=== PATIENT | male | born 1960 | race Caucasian/White ===

== ENCOUNTER 2020-08-01 15:35 | Emergency (ER) | payer OTHER, SELFPAY ==
[2020-08-01 15:39] VITALS: BP 163/85; PULSE 88; RESP 22; TEMP 37.2; O2SAT 99
[2020-08-01 16:04] LABS: INR 1.1 (0.9-1.3); Prothrombin Time 12.1 SECONDS (10.1-12.7)
[2020-08-01 16:05] LABS: Add Manual Diff / Slide Review NO; Basophils Absolute Auto 100 /uL (0-100); Basophils Percent Auto 0.6 % (0-2); Eosinophils Absolute Auto 400 /uL (0-450); Eosinophils Percent Auto 4.4 % (2-4); Hematocrit 46.8 % (41-53); Hemoglobin 15.8 g/dL (13.5-17.5); Lymphocytes Absolute Auto 3300 /uL (1100-4500); Lymphocytes Percent Auto 35.7 % (25-40); Mean Corpuscular HGB Conc 33.6 % (30-36); Monocytes Absolute Auto 600 /uL (0-900); Monocytes Percent Auto 6.6 % (3-14); Neutrophils Absolute Auto 4900 /uL (1500-7000); Neutrophils Percent Auto 52.7 % (50-75); Platelet Count 268 X10^3/uL (150-400); Red Blood Cell Count 4.93 X10^6/uL (4.5-5.9); Red Cell Distribution Width 13.5 % (11.6-14.8); White Blood Cell Count 9.2 X10^3/uL (4.5-11.0)
[2020-08-01 16:06] LABS: PTT Partial Thromboplastin Tim 38 SECONDS (26.4-36.2)
[2020-08-01 16:08] LABS: Alanine Aminotransferase 36 IU/L (<50); Albumin 5.1 g/dL (3.5-5.0); Albumin Globulin Ratio 1.2 (1.0-2.8); Alkaline Phosphatase 97 U/L (38-126); Aspartate Aminotransferase 40 IU/L (17-59); BUN Creatinine Ratio 15.1 (6-22); Bilirubin Total 0.6 mg/dL (0.2-1.3); Blood Urea Nitrogen 13 mg/dL (9-20); Calcium 10.3 mg/dL (8.4-10.2); Carbon Dioxide 28 mmol/L (22-32); Chloride 104 mmol/L (98-107); Estimated Glomerular Filt Rate > 60.0 mL/min (>60); Globulin 4.3 g/dL (1.7-4.1); Glucose 91 mg/dL (70-100); HEMOLYSIS < 15 (0-50); Lipase 213 U/L (23-300); Potassium 3.8 mmol/L (3.4-5.1); Sodium 141 mmol/L (137-145); Total Protein 9.4 g/dL (6.3-8.2)
--- NOTE | 2020-08-01 18:07 | ED.NAVMDI ---
HPI - Nausea/Vomiting/Diarrhea General Chief complaint: Nausea/Vomiting/Diarrhea Stated complaint: BOTH SIDE WHERE KIDNEY ARE EXTREME PAIN CRAMPS BENAVIDES Time Seen by Provider: 08/01/20 18:02 Source: patient Mode of arrival: Ambulatory Limitations: no limitations History of Present Illness HPI Narrative: 59-year-old male Daily smoker presents with a chief complaint of many days of bilateral flank pain which he refers to his kidney pain. He states that the pain seems to be constant and is worse with motion and improves with rest. He denies any fever or chills. He states he has had nausea and occasional episodes of vomiting. He states that he has had some issues with abnormal bowel movements but is rather nonspecific regarding this. He denies any change in medications or diet. He denies any dysuria, frequency or urgency. He states that he has been losing weight for no apparent reason for the past few months. He denies any history of cancer. He denies any recent travel or exposure to ill persons. MD complaint: nausea and abdominal pain Onset (ago): day(s) Description of Vomiting: food contents Description of Diarrhea: none Associated Abdominal Pain: Yes Location of pain: diffuse Severity: mild Quality: cramping Relieving factors: none Exacerbating factors: none Associated symptoms: other (bilateral flank pain) Related Data Previous Rx's Medication Instructions Recorded benzonatate 100 mg capsule 100 mg PO BID PRN #30 cap 01/10/20 fluticasone propionate 50 2 spray NASAL DAILY #18.2 ml 01/10/20 mcg/actuation nasal spray,suspension amoxicillin-pot clavulanate 1 tab PO BID #20 tab 08/01/20 [Augmentin] hyoscyamine sulfate 0.125 mg PO BID-QID PRN #20 tab 08/01/20 ondansetron 4 mg PO TID-QID PRN #10 tab 08/01/20 Allergies Allergy/AdvReac Type Severity Reaction Status Date / Time DIVALPROEX Allergy Mild liver Uncoded 01/10/20 15:39 shutting down Review of Systems Constitutional Constitutional: Denies chills, Reports fatigue, Denies fever(s), Denies frequent falls, Denies lethargy and Denies weakness Eyes Eyes: Denies change in vision, Denies eye discharge, Denies irritation and Denies loss of vision ENT Ears, Nose, Mouth, and Throat: Denies change in voice, Denies dizziness, Denies neck pain, Denies sore throat and Denies throat swelling Cardiovascular Cardiovascular: Denies chest pain, Denies irregular heart rhythm, Denies lightheadedness, Denies palpitations, Denies dyspnea, Denies dyspnea on exertion and Denies orthopnea Respiratory Respiratory: Denies cough, Denies dyspnea, Denies dyspnea on exertion and Denies wheezing Gastrointestinal Gastrointestinal: Reports abdominal pain, Denies change in bowel habits, Denies diarrhea, Reports nausea and Denies vomiting Musculoskeletal Musculoskeletal: Denies neck pain and Denies numbness Integumentary/Breasts Skin/Breast: Denies pruritus, Denies erythema, Denies rash and Denies wounds Neurologic Neurologic: Denies behavioral changes, Denies confusion, Denies dizziness, Denies frequent falls, Denies loss of vision, Denies numbness and Denies weakness Psychiatric Psychiatric: Denies anxiety, Denies behavioral changes, Denies confusion, Denies depression, Denies homicidal ideation and Denies suicidal ideation Endocrine Endocrine: Reports fatigue, Denies flushing and Denies palpitations Hematologic/Lymphatic Hematologic/Lymphatic: Denies easy bruising Allergic/Immunologic Allergic/Immunologic: Denies urticaria, Denies throat swelling and Denies wheezing Patient History Medical History Allergic rhinitis Social History Smoking Status: Current every day smoker Smoking Status: Current every day smoker alcohol intake frequency: a few times a week Alcohol type: beer Exam Narrative Exam Narrative: GENERAL: [51] year old patient appears older than stated age. Thin, temporal wasting, appears uncomfortable HEAD: Atraumatic. Normocephalic. EYES: Pupils equal round and reactive. Extraocular motions intact. No scleral icterus. No injection or drainage. ENT: Nose without bleeding, purulent drainage. Throat without erythema, tonsillar hypertrophy or exudate. Airway patent. NECK: Trachea midline. Non tender CARDIOVASCULAR: Regular rate and rhythm without murmurs, gallops, or rubs. RESPIRATORY: Clear to auscultation. Breath sounds equal bilaterally. No wheezes, rales, or rhonchi. GASTROINTESTINAL: Abdomen soft, mild generalized tenderness, nondistended. EXTREMITIES: No edema or joint tenderness. BACK: Nontender without deformity or crepitance. No flank tenderness. NEURO: AOx3. SKIN: No rash or erythema of visible areas Initial Vital Signs Initial Vital Signs: Vital Signs Temperature 98.9 F 08/01/20 15:39 Pulse Rate 88 08/01/20 15:39 Respiratory Rate 22 08/01/20 15:39 Blood Pressure 163/85 H 08/01/20 15:39 Pulse Oximetry 99 08/01/20 15:39 Course Orders Ordered: Discontinued Medications Sodium Chloride (Normal Saline 0.9%) 1,000 mls @ 1,000 mls/hr IV BOLUS ONE Stop: 08/01/20 19:56 Last Admin: 08/01/20 19:13 Dose: Not Given Documented by: QUEENIE Pantoprazole Sodium (Pantoprazole 40 Mg Vial) 40 mg IV NOW ONE Stop: 08/01/20 18:58 Last Admin: 08/01/20 19:13 Dose: 40 mg Documented by: QUEENIE Reevaluation(s) Reevaluation #1: Patient feeling significant improvement over the above-stated therapies Vital Signs Vital signs: Vital Signs - 8 hr 08/01/20 15:39 Temperature 98.9 F Pulse Rate 88 Respiratory Rate 22 Blood Pressure 163/85 H Pulse Oximetry 99 MDM - Nausea/Vomiting/Diarrhea Lab Data Result diagrams: 08/01/20 15:50 08/01/20 15:50 Labs: Lab Results 08/01/20 08/01/20 08/01/20 Range/Units 15:50 15:50 15:50 WBC 9.2 (4.5-11.0) X10^3/uL RBC 4.93 (4.5-5.9) X10^6/uL Hgb 15.8 (13.5-17.5) g/dL Hct 46.8 (41-53) % MCV 95.0 (80-100) fL MCH 32.0 (26-34) PG MCHC 33.6 (30-36) % RDW 13.5 (11.6-14.8) % Plt Count 268 (150-400) X10^3/uL Neut % (Auto) 52.7 (50-75) % Lymph % (Auto) 35.7 (25-40) % [place] % (Auto) 6.6 (3-14) % Eos % (Auto) 4.4 H (2-4) % Baso % (Auto) 0.6 (0-2) % Neut # (Auto) 4900 (3045-5110) /uL Lymph # (Auto) 3300 (7719-8882) /uL [place] # (Auto) 600 (0-900) /uL Eos # (Auto) 400 (0-450) /uL Baso # (Auto) 100 (0-100) /uL PT 12.1 (10.1-12.7) SECONDS INR 1.1 (0.9-1.3) APTT 38 H (26.4-36.2) SECONDS Sodium 141 (137-145) mmol/L Potassium 3.8 (3.4-5.1) mmol/L Chloride 104 (98-107) mmol/L Carbon Dioxide 28 (22-32) mmol/L BUN 13 (9-20) mg/dL Creatinine 0.86 (0.66-1.25) mg/dL Estimated GFR > 60.0 (>60) mL/min BUN/Creatinine Ratio 15.1 (6-22) Glucose 91 (70-100) mg/dL Calcium 10.3 H (8.4-10.2) mg/dL Total Bilirubin 0.6 (0.2-1.3) mg/dL AST 40 (17-59) IU/L ALT 36 (<50) IU/L Alkaline Phosphatase 97 (38-126) U/L Total Protein 9.4 H (6.3-8.2) g/dL Albumin 5.1 H (3.5-5.0) g/dL Globulin 4.3 H (1.7-4.1) g/dL Albumin/Globulin Ratio 1.2 (1.0-2.8) Lipase 213 (23-300) U/L Urine Color Urine Appearance Urine pH (4.5-8.0) Ur Specific [place] (1.000-1.035) Urine Protein (Negative) Urine Glucose (UA) (Negative) g/dL Urine Ketones (NEGATIVE) Urine Occult Blood (Negative) Urine Nitrate (Negative) Urine Bilirubin (NEGATIVE) Urine Urobilinogen (0.2) E.U./dL Ur Leukocyte Esterase (NEGATIVE) Urine RBC (0-5/HPF) Urine WBC (0-5/HPF) Ur Squamous Epith Cells (0-5/HPF) Urine Bacteria (None) Ur Culture Indicated? C. difficile Tox (PCR) 08/01/20 08/01/20 Range/Units 18:05 18:05 WBC (4.5-11.0) X10^3/uL RBC (4.5-5.9) X10^6/uL Hgb (13.5-17.5) g/dL Hct (41-53) % MCV (80-100) fL MCH (26-34) PG MCHC (30-36) % RDW (11.6-14.8) % Plt Count (150-400) X10^3/uL Neut % (Auto) (50-75) % Lymph % (Auto) (25-40) % [place] % (Auto) (3-14) % Eos % (Auto) (2-4) % Baso % (Auto) (0-2) % Neut # (Auto) (6643-7830) /uL Lymph # (Auto) (4804-9101) /uL [place] # (Auto) (0-900) /uL Eos # (Auto) (0-450) /uL Baso # (Auto) (0-100) /uL PT (10.1-12.7) SECONDS INR (0.9-1.3) APTT (26.4-36.2) SECONDS Sodium (137-145) mmol/L Potassium (3.4-5.1) mmol/L Chloride (98-107) mmol/L Carbon Dioxide (22-32) mmol/L BUN (9-20) mg/dL Creatinine (0.66-1.25) mg/dL Estimated GFR (>60) mL/min BUN/Creatinine Ratio (6-22) Glucose (70-100) mg/dL Calcium (8.4-10.2) mg/dL Total Bilirubin (0.2-1.3) mg/dL AST (17-59) IU/L ALT (<50) IU/L Alkaline Phosphatase (38-126) U/L Total Protein (6.3-8.2) g/dL Albumin (3.5-5.0) g/dL Globulin (1.7-4.1) g/dL Albumin/Globulin Ratio (1.0-2.8) Lipase (23-300) U/L Urine Color Yellow Urine Appearance Clear Urine pH 5.0 (4.5-8.0) Ur Specific [place] >=1.030 H (1.000-1.035) Urine Protein Trace H (Negative) Urine Glucose (UA) Negative (Negative) g/dL Urine Ketones 2+ H (NEGATIVE) Urine Occult Blood Trace-intact (Negative) Urine Nitrate Negative (Negative) Urine Bilirubin Negative (NEGATIVE) Urine Urobilinogen 0.2 (0.2) E.U./dL Ur Leukocyte Esterase Negative (NEGATIVE) Urine RBC 0-1/hpf (0-5/HPF) Urine WBC 0-1/hpf (0-5/HPF) Ur Squamous Epith Cells 0-1 /hpf (0-5/HPF) Urine Bacteria None seen (None) Ur Culture Indicated? Cult not indicated C. difficile Tox (PCR) Negative for c. diff Imaging Data CT scan - abdomen/pelvis: Radiologist's Impression: Chart Viewer Diagnostics DATE TYPE STATUS REF RANGE/AUTHOR Hx 08/01/20 18:09 TrevinoVikram Saini 59, M0 1960 [facility] ER, Main ED 54.431kg Nausea/Vomiting/Diarrhea Search Chart No Data to Display liver shutting down ONSET 08/01/20 19:00 Vikram Hong 59 M [address] Scan ReportSigned Patient: Vikram Hong SMR#: [id number]: 1960cct:[id number]/Sex: 59 / MDate of Service: 08/01/20Loc: EDAccession Number: [id number] Procedure: CT chest abd pel w con Ordering Provider: Lawrence Perdomo D.O. PROCEDURE: CT CHEST ABD PEL W CON INDICATIONS: persistent N/V, weight loss TECHNIQUE: After the administration of intravenous contrast, 5 mm thick sections acquired from the lung apices to the symphysis. 2.5 mm thick coronal and sagittal reformats were acquired. Additional 7 mm thick coronal maximum intensity projection (MIP) reformats acquired through the lungs. Optional 10-minute delayed imaging may be performed from the kidneys to the bladder. For radiation dose reduction, the following was used: automated exposure control, adjustment of mA and/or kV according to patient size. COMPARISON: None. FINDINGS: Image quality: Excellent. CHEST: Lungs: No focal airspace opacity. Pleural spaces are clear. Mediastinum: No threshold enlarged mediastinal or hilar lymph node. Normal heart size. No pericardial effusion. Normal caliber thoracic aorta and main pulmonary trunk. Chest wall: No threshold enlarged axillary lymph node. No suspicious lytic or blastic osseous lesion. Age-indeterminate height loss of a few vertebral bodies in the thoracic spine. ABDOMEN: Solid organs: No discrete mass lesion or acute finding of the liver, spleen, pancreas, gallbladder, adrenal glands, or kidneys. Peritoneum and bowel: No abnormally dilated loop of bowel. The small bowel is diffusely fluid filled with areas of wall thickening up to 1.2 centimeters and mucosal hyperenhancement. The mesenteric vasculature appears widely patent and well opacified with IV contrast. Nodes and vessels: No retroperitoneal or mesenteric adenopathy. Aorta and inferior vena cava are normal in size and enhancement. Miscellaneous: No ventral hernias. PELVIS: Genitourinary: Bladder wall thickness is normal. Miscellaneous: No inguinal hernias or adenopathy. Bones: Pelvic ring and hip joints appear intact. No vertebral compression fractures. IMPRESSION: Wall thickening and mucosal thickening involving much of the proximal and mid small bowel. Findings are presumably infectious/inflammatory. Dictated by: Jesús Trevino M.D. on 08/01/2020 at 18:48 Approved by: Jesús Trevino M.D. on 08/01/2020 at 18:53 [facility] Narrative Medical decision making narrative: Patient with many months of weight loss, nausea and poor appetite presents with increasing abdominal pain nausea and vomiting. He has a very reassuring physical exam, symptoms are controlled with above-stated therapies. He is able to tolerate orals. CT is very reassuring and demonstrates no obstruction, tumors but does suggest some inflammatory change. Patient initiated on antibiotics given relatively new onset of pain and extensive return precautions. He has had questions answered to his apparent satisfaction Discharge Plan Departure Patient Disposition: Home Clinical Impression: Acute vomiting, Colitis Instructions: DI for Vomiting -- Adult, DI for Colitis Activity Restrictions/Additional Instructions: *You have been diagnosed with [dehydration and vomiting likely due to colitis] *What to do: *Take medications as directed *Follow up with your primary care provider in 2-3 days, call for an appointment. Let them know you were seen in the Emergency Department and that we ask that you be seen in follow up. I have also given you contact information for our general surgeon and a local access services assistant as you will likely need their assistance in getting to the bottom of all this, possibly with a colonoscopy *Return to ER if you should have any new, worsening or concerning symptoms, such as [fever greater than 101 F, dizziness, weakness, lightheadedness, increasing pain or inability to tolerate eating and drinking] Prescriptions: New hyoscyamine sulfate 0.125 mg tablet 0.125 mg PO BID-QID PRN (Reason: dyspepsia) Qty: 20 RF: 0 ondansetron 4 mg tablet,disintegrating 4 mg PO TID-QID PRN (Reason: nausea and vomiting) Qty: 10 RF: 0 amoxicillin-pot clavulanate [Augmentin] 875-125 mg tablet 1 tab PO BID Qty: 20 RF: 0 No Action benzonatate [Tessalon Perles] 100 mg capsule 100 mg PO BID PRN (Reason: cough) Qty: 30 RF: 0 fluticasone propionate [Flonase Allergy Relief] 50 mcg/actuation spray,suspension 2 spray NASAL DAILY Qty: 18.2 RF: 0 Referrals: [facility] [Outside] Harjinder Harris MD [Physician] -
[2020-08-01 18:27] VITALS: BP 160/78; PULSE 60; O2SAT 96
[2020-08-01 18:29] VITALS: BP 160/78; PULSE 83; O2SAT 100
[2020-08-01 18:29] LABS: Bacteria Urine None Seen
[2020-08-01 18:30] VITALS: BP 143/75; PULSE 81; O2SAT 100
[2020-08-01 18:50] LABS: Appearance Urine UA CLEAR; Bilirubin Urine UA NEGATIVE (NEGATIVE); Color Urine UA YELLOW; Glucose Urine UA NEGATIVE (Negative); Ketones Urine UA 2+ (NEGATIVE); Leukocyte Esterase Urine UA NEGATIVE (NEGATIVE); Nitrite Urine UA NEGATIVE (Negative); Occult Blood Urine UA TRACE-INTACT (Negative); Protein Urine UA TRACE (Negative); Specific Gravity Urine UA >=1.030 (1.000-1.035); Urobilinogen Urine UA 0.2 E.U./dL (0.2)
[2020-08-01 18:52] LABS: Culture Indicated Urine Cult Not Indicated; RBC Urine 0-1/HPF (0-5/HPF); Squamous Epithelial Cell Urine 0-1 /HPF (0-5/HPF); WBC Urine 0-1/HPF (0-5/HPF)
[2020-08-01 19:00] VITALS: BP 134/79; PULSE 75; O2SAT 97
[2020-08-01] MEDS: PANTOPRAZOLE 40 MG VIAL IV (19:13)
[2020-08-01 19:25] LABS: Clostridium Difficile Tox PCR Negative for C. diff
== END 2020-08-01 19:23 | disposition home or self-care (01) ==
PROVIDERS: Emergency Medicine; Emergency Provider Emergency Medicine
DX: K52.9 Noninfective gastroenteritis and colitis, unspecified (principal); R11.2 Nausea with vomiting, unspecified
CPT/HCPCS: 36415; 71260; 74177; 80053; 81001; 83690; 85025; 85610; 85730; 87045; 87493; 87899; 93005; 96374; 99284; C9113; Q9967

== ENCOUNTER → 2020-08-23 14:21 | Outpatient (CLI) | payer OTHER, SELFPAY ==
[2020-08-23 14:31] LABS: RBC Urine None Seen (0-5/HPF)
[2020-08-23 14:59] LABS: Add Manual Diff / Slide Review NO; Basophils Absolute Auto 100 /uL (0-100); Eosinophils Absolute Auto 700 /uL (0-450); Eosinophils Percent Auto 10.7 % (2-4); Hemoglobin 14.7 g/dL (13.5-17.5); Lymphocytes Absolute Auto 2300 /uL (1100-4500); Lymphocytes Percent Auto 33.7 % (25-40); Mean Corpuscular HGB Conc 33.5 % (30-36); Mean Corpuscular Hemoglobin 32.2 PG (26-34); Mean Corpuscular Volume 96.3 fL (80-100); Monocytes Absolute Auto 500 /uL (0-900); Monocytes Percent Auto 7.2 % (3-14); Neutrophils Absolute Auto 3300 /uL (1500-7000); Neutrophils Percent Auto 47.4 % (50-75); Platelet Count 240 X10^3/uL (150-400); Red Blood Cell Count 4.57 X10^6/uL (4.5-5.9); Red Cell Distribution Width 13.5 % (11.6-14.8); White Blood Cell Count 6.9 X10^3/uL (4.5-11.0)
[2020-08-23 16:21] LABS: Vitamin D 25 Hydroxy (D3) 36.5 ng/mL (30.0-100.0)
[2020-08-23 16:34] LABS: Appearance Urine UA CLEAR; Bilirubin Urine UA NEGATIVE (NEGATIVE); Color Urine UA YELLOW; Glucose Urine UA NEGATIVE (Negative); Ketones Urine UA NEGATIVE (NEGATIVE); Leukocyte Esterase Urine UA NEGATIVE (NEGATIVE); Nitrite Urine UA NEGATIVE (Negative); Occult Blood Urine UA NEGATIVE (Negative); Protein Urine UA TRACE (Negative); Specific Gravity Urine UA 1.025 (1.000-1.035); Urobilinogen Urine UA 0.2 E.U./dL (0.2); pH Urine UA 6.5 (4.5-8.0)
[2020-08-23 16:52] LABS: Alanine Aminotransferase 45 IU/L (<50); Albumin 4.4 g/dL (3.5-5.0); Albumin Globulin Ratio 1.3 (1.0-2.8); Alkaline Phosphatase 70 U/L (38-126); Aspartate Aminotransferase 32 IU/L (17-59); BUN Creatinine Ratio 18.9 (6-22); Bilirubin Total 0.3 mg/dL (0.2-1.3); Blood Urea Nitrogen 18 mg/dL (9-20); Carbon Dioxide 29 mmol/L (22-32); Chloride 103 mmol/L (98-107); Cholesterol 201 mg/dL (140-199); Estimated Glomerular Filt Rate > 60.0 mL/min (>60); Globulin 3.5 g/dL (1.7-4.1); Glucose 86 mg/dL (70-100); HDL Cholesterol 75 mg/dL (40-60); HEMOLYSIS < 15 (0-50); LDL Cholesterol Calculated 90 mg/dL (<100); Potassium 4.4 mmol/L (3.4-5.1); Sodium 138 mmol/L (137-145); Total Protein 7.9 g/dL (6.3-8.2); Triglycerides 178 mg/dL (35-150)
[2020-08-23 17:02] LABS: Prealbumin 27.1 mg/dL (17.6-36.0)
[2020-08-23 17:05] LABS: Amorphous Sediment Urine 1+; Mucus Urine 1+ (Negative)
[2020-08-23 17:10] LABS: WBC Urine 0-1/HPF (0-5/HPF)
[2020-08-23 17:11] LABS: Bacteria Urine Occasional (0-1)
[2020-08-23 17:15] LABS: Culture Indicated Urine Cult Not Indicated
[2020-08-23 17:18] LABS: Squamous Epithelial Cell Urine 0-1 /HPF (0-5/HPF)
[2020-08-23 17:25] LABS: Prostate Specific Antigen Scrn 0.543 ng/mL (0.1-4.0)
[2020-08-23 17:47] LABS: Vitamin B12 745 pg/mL (239-931)
[2020-08-23 17:49] LABS: Free T4, Direct Thyroxine 1.09 ng/dL (0.78-2.19)
== END ==
PROVIDERS: PCP Student in an Organized Health Care Education/Training Program; Referring Provider Student in an Organized Health Care Education/Training Program; Visit Provider Student in an Organized Health Care Education/Training Program
DX: R10.9 Unspecified abdominal pain (principal); R63.4 Abnormal weight loss; R94.5 Abnormal results of liver function studies; Z12.5 Encounter for screening for malignant neoplasm of prostate; Z13.220 Encounter for screening for lipoid disorders; R82.4 Acetonuria
CPT/HCPCS: 36415; 80053; 80061; 81001; 82306; 82607; 84134; 84439; 84443; 85025; 87086; G0103

== ENCOUNTER → 2020-09-26 08:59 | Outpatient (CLI) | payer OTHER, SELFPAY ==
[2020-09-26 11:38] LABS: COVID19 -Nasal RAPID Negative (Negative)
== END ==
PROVIDERS: PCP Student in an Organized Health Care Education/Training Program; Visit Provider Student in an Organized Health Care Education/Training Program
DX: Z01.812 Encounter for preprocedural laboratory examination (principal); Z20.822 Contact with and (suspected) exposure to COVID-19
CPT/HCPCS: 87635

== ENCOUNTER 2020-09-28 14:52 | Day surgery (SDC) | payer OTHER, SELFPAY ==
--- NOTE | 2020-09-28 | PATH_ITS ---
[facility] Accession Number: [id number] . 01 Material submitted: . small bowel - RANDOM SMALL BOWEL BIOPSIES . 01 Clinical history: . A: WT LOSS/ABNORMAL CT . 02 Diagnosis: Small Bowel, Random Biopsies: Small bowel mucosa with no diagnostic abnormality. Negative for active inflammation, dysplasia and malignancy. [facility] 10/03/2020 1620 Local . 02 Electronically signed: . Magdalena Dumont MD, Pathologist NPI- [id number] . 01 Gross description: . The specimen is received in formalin labeled random small bowl and consists of two m[place]o fragments of soft tissue, measuring 0.6 x 0.4 x 0.2 cm in aggregate. The specimen is entirely submitted in cassette A1. (EA:[id number]) /[facility] 09/29/2020 1739 Local . 02 Pathologist provided ICD-10: Z86.010 . 02 CPT . 937841 Performed at: 01 [facility] Cytology [address], [place], [place] [id number] MD Vikram Capellan MD Phone: [phone] Performed at: 02 [facility] [address] [place], [place] [id number] MD Magdalena Dumont MD Phone: [phone]
[2020-09-28 15:12] VITALS: BP 117/78; PULSE 77; RESP 16; TEMP 36.6; O2SAT 100; BMI 18.2
[2020-09-28] MEDS: SODIUM CHLORIDE 0.9% 1,000 ML 84 ML IV (15:21)
--- NOTE | 2020-09-28 15:37 | PM.HP.1 ---
History of Present Illness History of Present Illness Date Patient Seen: 09/28/20 Chief complaint: SDC Narrative: Weight loss and abnormal CT scan Patient History Medical History (Updated 08/24/20 @ 07:43 by Zhang Bolden MD) Allergic rhinitis Partial blindness (~1978) Family & Social History Family History (Updated 08/22/20 @ 22:11 by Courtney Reyes) Father Mental health problem Mother Diabetes mellitus Social History: household members family Tobacco & Substance use: Tobacco type cigarettes Smoking Status Current every day smoker Smoking packs per day 1 alcohol intake never alcohol intake frequency a few times a week Substance Use Type does not use Meds Home Medications and Allergies Home Medications Medication Instructions Recorded Confirmed Type No Known Home Medications 09/28/20 09/28/20 History Allergies Allergy/AdvReac Type Severity Reaction Status Date / Time DIVALPROEX Allergy Mild liver Uncoded 08/23/20 13:39 shutting down Exam Vital Signs (past 8 hours): - 09/28/20 15:12 Temperature 98 F Pulse Rate 77 Respiratory Rate 16 Blood Pressure 117/78 Pulse Oximetry 100 Oxygen Delivery Method Room Air Narrative Exam Narrative: Oropharynx free of lesions Chest clear to auscultation percussion Cardiac exam reveals no S3 or murmur Assessment & Plan Assessment & Plan narrative: Weight loss and abnormal CT scan showing jejunal loops of bowel with wall thickening. Need for enteroscopy to try to reach. Risks, benefits, alternatives have been explained.
--- NOTE | 2020-09-28 15:38 | PM.OP.ENDO ---
Operative Date/Time/Diagnoses Date of procedure: 09/28/20 Pre-op diagnosis: See indication and findings Procedure & Clinicians Study performed: Enteroscopy Same procedure as scheduled: Yes Indications: Abnormal CT scan showing proximal jejunal loops of bowel with wall thickening and fluid. Patient has significant weight loss. And abdominal pain. Need to try to reach loops of small bowel on biopsy them Surgeon: Harjinder Harris Procedure Notes Procedure in detail: After informed consent was obtained the patient was placed in left lateral decubitus position. The video colonoscope was placed into the oropharynx and with the patient's help swallowed into the esophagus. The esophagus stomach and duodenum were carefully examined and the scope was passed as far distal as was possible. On withdrawal mucosa was carefully examined. The scope was removed. The patient tolerated procedure well. The scope was passed 25 cm past the pylorus 15 cm past the ligament of Treitz Blood loss none Complications none Sedation MAC Findings 1. Grossly normal appearing small bowel. Biopsies taken. 2. Otherwise normal esophagus stomach. Will be in touch with him after we get his biopsy results back.
[2020-09-28 16:20] VITALS: BP 95/68; PULSE 67; RESP 14; TEMP 36.5; O2SAT 97
[2020-09-28 16:25] VITALS: BP 103/65; PULSE 65; RESP 14; O2SAT 97
[2020-09-28 16:30] VITALS: BP 104/75; PULSE 70; RESP 18; O2SAT 99
[2020-09-28 16:35] VITALS: BP 109/71; PULSE 76; RESP 14; O2SAT 99
[2020-09-28 16:42] VITALS: BP 128/93; PULSE 75; RESP 14; TEMP 37; O2SAT 100
== END 2020-09-28 16:50 | disposition home or self-care (01) ==
PROVIDERS: PCP Student in an Organized Health Care Education/Training Program; Referring Provider Internal Medicine Gastroenterology; Visit Provider Internal Medicine Gastroenterology
PROC: 0DJ08ZZ Inspection of Upper Intestinal Tract, Via Natural or Artificial Opening Endoscopic (ICD-10-PCS; CPT 43235; principal; 2020-09-28 15:30)
DX: R10.9 Unspecified abdominal pain (principal); R93.5 Abnormal findings on diagnostic imaging of other abdominal regions, including retroperitoneum; R63.4 Abnormal weight loss; F17.210 Nicotine dependence, cigarettes, uncomplicated
CPT/HCPCS: 44361; J2250; J2704; J3010

== ENCOUNTER → 2022-11-16 11:31 | Outpatient (CLI) | payer OTHER, SELFPAY ==
[2022-11-16 11:52] LABS: Add Manual Diff / Slide Review NO; Basophils Absolute Auto 100 /uL (0-100); Basophils Percent Auto 0.9 % (0-2); Eosinophils Absolute Auto 700 /uL (0-450); Eosinophils Percent Auto 7.5 % (2-4); Hematocrit 44.5 % (41-53); Hemoglobin 15.1 g/dL (13.5-17.5); Lymphocytes Absolute Auto 2700 /uL (1100-4500); Mean Corpuscular HGB Conc 33.8 % (30-36); Mean Corpuscular Hemoglobin 32.1 PG (26-34); Mean Corpuscular Volume 94.9 fL (80-100); Monocytes Absolute Auto 600 /uL (0-900); Monocytes Percent Auto 7.1 % (3-14); Neutrophils Absolute Auto 4700 /uL (1500-7000); Neutrophils Percent Auto 53.5 % (50-75); Platelet Count 230 X10^3/uL (150-400); Red Cell Distribution Width 13.4 % (11.6-14.8); White Blood Cell Count 8.8 X10^3/uL (4.5-11.0)
[2022-11-16 12:21] LABS: Alanine Aminotransferase 47 IU/L (<50); Albumin 4.5 g/dL (3.5-5.0); Albumin Globulin Ratio 1.2 (1.0-2.8); Alkaline Phosphatase 73 U/L (38-126); Aspartate Aminotransferase 34 IU/L (17-59); BUN Creatinine Ratio 19.1 (6-22); Bilirubin Total 0.6 mg/dL (0.2-1.3); Blood Urea Nitrogen 18 mg/dL (9-20); Calcium 9.5 mg/dL (8.4-10.2); Carbon Dioxide 30 mmol/L (22-32); Chloride 102 mmol/L (98-107); Cholesterol 209 mg/dL (140-199); Estimated Glomerular Filt Rate > 60 mL/min (>60); Globulin 3.7 g/dL (1.7-4.1); Glucose 86 mg/dL (80-110); HDL Cholesterol 69 mg/dL (40-60); HEMOLYSIS < 15 (0-50); LDL Cholesterol Calculated 117 mg/dL (<100); Potassium 4.9 mmol/L (3.4-5.1); Sodium 138 mmol/L (137-145); Total Protein 8.2 g/dL (6.3-8.2); Triglycerides 114 mg/dL (35-150)
[2022-11-16 12:34] LABS: Appearance Urine UA CLEAR; Bilirubin Urine UA NEGATIVE (NEGATIVE); Color Urine UA YELLOW; Glucose Urine UA NEGATIVE (Negative); Ketones Urine UA NEGATIVE (NEGATIVE); Leukocyte Esterase Urine UA NEGATIVE (NEGATIVE); Nitrite Urine UA NEGATIVE (Negative); Occult Blood Urine UA NEGATIVE (Negative); Protein Urine UA NEGATIVE (Negative); Urobilinogen Urine UA 0.2 E.U./dL (0.2)
[2022-11-16 12:42] LABS: Bacteria Urine Occasional (0-1); Culture Indicated Urine Cult Not Indicated; RBC Urine 0-1/HPF (0-5/HPF); Squamous Epithelial Cell Urine 0-1 /HPF (0-5/HPF); WBC Urine 0-1/HPF (0-5/HPF)
[2022-11-16 12:54] LABS: TSH w/ Reflex to FT4 0.83 uIU/mL (0.47-4.68)
[2022-11-16 13:04] LABS: HIV 1 & 2 Ab/Ag 4th Gen Combo NEGATIVE (NEGATIVE); Hep C Virus Ab w/Reflex Quant NEGATIVE s/c (NEGATIVE)
== END ==
PROVIDERS: PCP Pediatrics; Referring Provider Pediatrics; Visit Provider Pediatrics
DX: N52.9 Male erectile dysfunction, unspecified (principal); Z00.00 Encounter for general adult medical examination without abnormal findings; Z12.5 Encounter for screening for malignant neoplasm of prostate
CPT/HCPCS: 36415; 80053; 80061; 81001; 84443; 85025; 86803; 87389; G0103

== ENCOUNTER 2023-01-11 07:34 | Day surgery (SDC) | payer OTHER, SELFPAY ==
--- NOTE | 2023-01-11 | PATH_ITS ---
[facility] Accession Number: [id number] No. of containers..01 Tissue . 01 Material submitted: . colon - ASCENDING COLON . 01 Diagnosis: Ascending Colon Polyp: Tubular adenoma. Additional step sections examined. V 01/21/2023 1532 Local . 01 Electronically signed: . Juan Braga MD, PhD, Pathologist NPI- [id number] . 01 Gross description: . ASCENDING COLON: Received in formalin is 1 fragment(s) of macedo, soft tissue measuring 0.2 x 0.1 x 0.1 cm submitted entirely in 1 cassette(s) /AAY 01/14/2023 0602 Local . 01 Pathologist provided ICD-10: D12.2 . 01 CPT . 786798 Specimen Comment: A courtesy copy of this report has been sent to [facility] Pathology Performed at: 01 [facility] Cytology [address] [place] [address], [place], [place] [id number] MD Vikram Capellan MD Phone: [phone]
[2023-01-11 07:58] VITALS: BP 114/76; PULSE 74; RESP 16; TEMP 36.8; O2SAT 98; BMI 20.5
[2023-01-11] MEDS: LACTATED RINGERS 1,000 ML 42 ML IV (08:07)
--- NOTE | 2023-01-11 08:44 | P.HP_ITS ---
History of Present Illness History of Present Illness Date Patient Seen: 01/11/23 Time Patient Seen: 08:40 Chief complaint: [facility] Narrative: Mr. Hong presents today for screening colonoscopy he has never had 1 before. Has had an upper GI endoscopy in the past. I did see notes and reviewed the from this. No family history of colon cancer and a states that his father had some sort of ?colon problem? but not cancer he says the term diverticulitis sounds familiar. He has no symptoms denies bleeding diarrhea constipation or abdominal pain. He is no further questions about a colonoscopy and would like to proceed [facility] Medical History (Updated 01/11/23 @ 08:45 by Yee Foss MD) Allergic rhinitis Annual physical exam Back pain Chest pain of uncertain etiology Erectile dysfunction Leg paresthesia Partial blindness (~1978) Family History Father Mental health problem Mother Diabetes mellitus Social History household members: family Smoking Status: Current every day smoker alcohol intake: never Meds Home Medications and Allergies Home Medications Medication Instructions Recorded Confirmed Type sodium,potassium,mag sulfates 17.5 See Rx Instructions PO .COMPLEX 12/10/22 Rx gram-3.13 gram-1.6 gram oral soln #354 mL (Suprep Bowel Prep Kit) Allergies Allergy/AdvReac Type Severity Reaction Status Date / Time DIVALPROEX Allergy Mild liver Uncoded 01/11/23 07:57 shutting down Exam Vital Signs (past 8 hours): - 01/11/23 07:58 Temperature 98.2 F Pulse Rate 74 Respiratory Rate 16 Blood Pressure 114/76 Pulse Oximetry 98 Oxygen Delivery Method Room Air Oxygen Delivery Method Room Air Const General: cooperative, healthy appearing and comfortable Nutritional Appearance: average body habitus, well nourished and thin HENMT Head: normal to inspection Eyes General: appearance normal, both eyes and all related structures Resp Effort & Inspection: normal respiratory effort and able to speak in complete sentences GI Palpation: soft and No tender Assessment & Plan Assessment and plan (1) Screening for colon cancer: Status: Acute Plan Presents today for screening colonoscopy I discussed the risks benefits and alternatives including but not limited to perforation of the colon and an incomplete exam he fully understands these risks and would like to proceed.
[2023-01-11 09:16] VITALS: BP 99/67; PULSE 70; RESP 19; TEMP 36.6; O2SAT 100
[2023-01-11 09:21] VITALS: BP 106/73; PULSE 68; RESP 14; O2SAT 100
--- NOTE | 2023-01-11 09:23 | P.OP.COLON_ITS ---
Operative Date/Time/Diagnoses Date of procedure: 01/11/23 Time of procedure: : Pre-op diagnosis: Screening for colon cancer. No family history Post-op diagnosis: same Procedure & Clinicians Study performed: Colonoscopy and biopsy Same procedure as scheduled: Yes Indications: Screening for colon cancer no family history Surgeon: Yee Foss Procedure Notes Procedure in detail: Patient was taken to the endoscopy suite and placed in a left lateral decubitus position. A time-out was performed. With the help of anesthesiologist conscious sedation was induced and monitored throughout the case. A digital rectal exam was performed and there were no masses or strictures. The colonoscope was introduced into the anal canal and advanced through to the cecum. A photograph of the appendiceal orifice was obtained. The bowel prep was good [place] bowel prep score of 2. The scope was then withdrawn for a total of 12 minutes and 1 small polyp just distal to the cecum in the ascending colon was seen and removed with the biopsy forceps. There were multiple sigmoid diverticula; photographs were obtained. The scope was then retroflexed and a photograph of the internal hemorrhoidal piles was obtained. Patient tolerated the procedure well went in good condition to the postoperative care unit Findings: divertiulosis and polyp(s) Specimen(s): other (Ascending colon polyp) Post-procedure Plan for aftercare: Most likely follow-up will be 7 years however the final pathologic results from the polyp will give us the final follow-up recommendations. Because of the diverticula I am recommending fiber supplement.
[2023-01-11 09:26] VITALS: BP 105/77; PULSE 68; RESP 17; O2SAT 100
[2023-01-11 09:36] VITALS: BP 105/80; PULSE 75; RESP 14; TEMP 36.2; O2SAT 98
== END 2023-01-11 09:40 | disposition home or self-care (01) ==
PROVIDERS: PCP Pediatrics; Referring Provider Surgery; Visit Provider Surgery
PROC: 0DJD8ZZ Inspection of Lower Intestinal Tract, Via Natural or Artificial Opening Endoscopic (ICD-10-PCS; CPT 45378; principal; 2023-01-11 08:30)
DX: Z12.11 Encounter for screening for malignant neoplasm of colon (principal); K57.30 Diverticulosis of large intestine without perforation or abscess without bleeding; D12.2 Benign neoplasm of ascending colon
CPT/HCPCS: 45380

== ENCOUNTER → 2023-02-25 12:12 | Outpatient (CLI) | payer OTHER, SELFPAY ==
[2023-02-25 14:28] LABS: Testosterone 632 ng/dL (71.8-623)
== END ==
PROVIDERS: PCP Pediatrics; Referring Provider Pediatrics; Visit Provider Pediatrics
DX: N52.9 Male erectile dysfunction, unspecified (principal)
CPT/HCPCS: 36415; 84403

== ENCOUNTER → 2023-02-26 10:27 | Outpatient (CLI) | payer OTHER, SELFPAY ==
--- NOTE | 2023-02-26 10:29 | DI.RAD.S_ITS ---
PROCEDURE: XR LUMBAR SPINE 2-3V INDICATIONS: weight loss, smoking history, right chest wall pain TECHNIQUE: 3 views of the lumbar spine were acquired. COMPARISON: None. FINDINGS: Bones: 5 [id number] vertebrae are present. No acute fracture. Mild levoconvex curvature of the lumbar spine with apex at L1-L2 where there is a bulky lateral osteophyte. Moderate multilevel degenerative changes of the spine with vertebral body and disc height loss, osteophytosis and facet arthropathy. No suspicious osseous lesion. Soft tissues: Overlying bowel gas pattern is normal. No suspicious soft tissue calcifications. Calcification of the abdominal aorta. Visualized lung bases are clear. IMPRESSION: 1. No acute fracture. 2. Moderate multilevel degenerative changes of the spine. Dictated by: Denae Hendricks M.D. on 02/26/2023 at 12:36 Approved by: Denae Hendricks M.D. on 02/26/2023 at 12:40
--- NOTE | 2023-02-26 10:29 | DI.RAD.S_ITS ---
PROCEDURE: XR CHEST 2V INDICATIONS: weight loss, smoking history, right chest wall pain TECHNIQUE: 2 views of the chest were acquired. COMPARISON: [facility], CT, CT CHEST ABD PEL W CON, 08/01/2020, 18:20. FINDINGS: Surgical changes and devices: None. Lungs and pleura: Rounded increased attenuation in the lower lobe on lateral view, not correlated on the PA view. No pleural effusions or pneumothorax. Mediastinum: Mediastinal contours are normal. Heart size is normal. Bones and chest wall: Midthoracic vertebral body compression fractures, increased height loss compared to CT dated August 01, 2020. No displaced rib fractures. No suspicious bony abnormalities. Soft tissues appear unremarkable. Upper abdomen: IMPRESSION: 1. Rounded increased attenuation in the lower lobe on lateral view, not correlated on the PA view. Findings may represent atelectasis versus a lesion. Given history, recommend a CT of the chest for further evaluation. 2. Midthoracic vertebral body compression fractures with increased height loss compared to CT dated August 01, 2020. 3. No radiographic abnormality to explain right chest wall pain. Dictated by: Denae Hendricks M.D. on 02/26/2023 at 12:41 Approved by: Denae Hendricks M.D. on 02/26/2023 at 13:19
== END ==
PROVIDERS: PCP Pediatrics; Referring Provider Pediatrics; Visit Provider Pediatrics
DX: Z00.00 Encounter for general adult medical examination without abnormal findings (principal); R20.2 Paresthesia of skin; M54.9 Dorsalgia, unspecified; N52.9 Male erectile dysfunction, unspecified; M48.54XA Collapsed vertebra, not elsewhere classified, thoracic region, initial encounter for fracture
CPT/HCPCS: 71046; 72100

== ENCOUNTER → 2023-03-31 11:42 | Outpatient (CLI) | payer OTHER, SELFPAY | PROVIDERS: PCP Student in an Organized Health Care Education/Training Program; Visit Provider Nurse Practitioner Family | DX: J02.9 Acute pharyngitis, unspecified (principal) | CPT/HCPCS: 87070 ==